=== PATIENT | female | born 1980 | race Caucasian/White ===

== ENCOUNTER 2016-06-07 08:51 | Emergency (ER) | payer OTHER ==
[2016-06-07] MEDS ORDERED: IPRATROPIUM-ALBUTEROL 3 ML NEB INHALATION STA (09:01)
--- NOTE | 2016-06-07 09:03 | ED ---
URI HPI - General Chief Complaint: Upper Respiratory Infection Stated Complaint: congestion Time Seen by Provider: 06/07/16 08:57 Source: patient, RN notes reviewed Mode of arrival: ambulatory Limitations: no limitations - History of Present Illness Initial Comments: 36-year-old female presents emergency Department chief complaint cough congestion 3 days. Patient states that she has severe body aches. Patient states she is a smoker and has noticed some wheezing. Patient states that she' s been coughing so much her ribs her. Patient denies any nausea vomiting. Patient states that she gets primarily clear to slightly yellow tinged nasal drainage. Denies sore throat, ear pain. Patient states that she's had some on- and-off headaches. She's been taking [id number] NyQuil, Tylenol cold and flu. Patient states that she's had no relief. - Related Data Previous Rx's Medication Instructions Recorded Ibuprofen [Motrin] 800 mg PO Q6HR PRN #30 tab 06/07/16 Oseltamivir [Tamiflu] 75 mg PO Q12HR #10 cap 06/07/16 methylPREDNISolone [Medrol Dose 4 mg PO DIRECTED #1 pack 06/07/16 Pack] Allergies Allergy/AdvReac Type Severity Reaction Status Date / Time Penicillins Allergy Unknown Verified 06/07/16 08:57 Review of Systems ROS Statement: Those systems with pertinent positive or pertinent negative responses have been documented in the HPI. ROS Other: All systems not noted in ROS Statement are negative. Past Medical History Past Medical History: No Reported History History of Any Multi-Drug Resistant Organisms: None Reported Past Surgical History: Tonsillectomy Past Psychological History: No Psychological Hx Reported Smoking Status: Current every day smoker Past Alcohol Use History: Occasional Past Drug Use History: Marijuana General Exam Limitations: no limitations General appearance: alert, in no apparent distress Head exam: Present: atraumatic, normocephalic, normal inspection Eye exam: Present: normal appearance, PERRL, EOMI. Absent: scleral icterus, conjunctival injection, periorbital swelling ENT exam: Present: normal exam, normal oropharynx, mucous membranes moist, TM's normal bilaterally, normal external ear exam Neck exam: Present: normal inspection, full ROM. Absent: tenderness, meningismus, lymphadenopathy Respiratory exam: Present: wheezes (Left long). Absent: respiratory distress, rales, rhonchi, stridor Cardiovascular Exam: Present: regular rate, normal rhythm, normal heart sounds. Absent: systolic murmur, diastolic murmur, rubs, gallop, clicks GI/Abdominal exam: Present: soft, normal bowel sounds. Absent: distended, tenderness, guarding, rebound, rigid Skin exam: Present: warm, dry, intact, normal color. Absent: rash Course Vital Signs 06/07/16 06/07/16 06/07/16 08:53 09:09 09:18 Temperature 98.3 F Pulse Rate 108 H 95 92 Respiratory 18 Rate Blood Pressure 150/102 O2 Sat by Pulse 95 Oximetry Medical Decision Making - Medical Decision Making 36-year-old female presents emergency Department with chief complaint of cough and congestion. Patient is influenza positive chest x-ray correlate for bronchitis. Patient does have some bronchospasms. Patient we given Tamiflu as her symptoms started Friday morning. Patient is approximate 40 hours her symptoms. Patient will also be given a steroid for her bronchospasms. Return parameters discussed. - Lab Data Lab Results 06/07/16 Range/Units 09:12 Influenza Type A RNA Detected H (Not Detectd) Influenza Type B (PCR) Not Detected (Not Detectd) Disposition Clinical Impression: Influenza A, Bronchospasm Disposition: HOME SELF-CARE Condition: Stable Instructions: Influenza (ED) Additional Instructions: Please return to the Emergency Department if symptoms worsen or any other concerns. Prescriptions: Ibuprofen [Motrin] 800 mg PO Q6HR PRN #30 tab PRN Reason: Pain Oseltamivir [Tamiflu] 75 mg PO Q12HR #10 cap methylPREDNISolone [Medrol Dose Pack] 4 mg PO DIRECTED #1 pack Time of Disposition: 09:46
--- NOTE | 2016-06-07 09:33 | XR ---
EXAMINATION TYPE: XR chest 2V DATE OF EXAM: 06/07/2016 9:10 AM COMPARISON: NONE HISTORY: Cough and pain TECHNIQUE: Frontal and lateral views of the chest are obtained. FINDINGS: There is no focal air space opacity, pleural effusion, or pneumothorax seen. The cardiac silhouette size is within normal limits. There are prominent lung volumes. There is bronchial wall t hickening. The osseous structures are intact. IMPRESSION: Correlate for reactive airways disease, bronchitis
[2016-06-07 09:50] VITALS: BP 159/91; PULSE 113; RESP 20
[2016-06-07 10:08] VITALS: TEMP 98.9
== END 2016-06-07 10:11 | disposition home or self-care (01) ==
LOC: EC 08:51
DX: J11.1 Influenza due to unidentified influenza virus with other respiratory manifestations (principal); J98.01 Acute bronchospasm; F17.200 Nicotine dependence, unspecified, uncomplicated; Z88.0 Allergy status to penicillin
CPT/HCPCS: 71020; 87502; 94640; 99284

== ENCOUNTER 2020-01-21 07:41 | Emergency (ER) | payer OTHER ==
[2020-01-21 07:45] VITALS: RESP 16
[2020-01-21] MEDS ORDERED: METOCLOPRAMIDE 5 MG/ML 2 ML VIAL IVP STA (07:53)
[2020-01-21] MEDS ORDERED: SODIUM CHLORIDE 0.9% 500 ML 500 ML IV STA (07:53)
[2020-01-21 08:51] LABS: Basophils # (A) 0.1 k/uL (0-0.2); Basophils % (A) 1 %; Eosinophils # (A) 0.4 k/uL (0-0.7); Eosinophils % (A) 3 %; HCT 43.5 % (34.0-46.0); HGB 14.3 gm/dL (11.4-16.0); Lymphocytes # (A) 1.6 k/uL (1.0-4.8); Lymphocytes % (A) 12 %; MCH 28.6 pg (25.0-35.0); MCHC 32.8 g/dL (31.0-37.0); MCV 87.2 fL (80.0-100.0); Mean Platelet Volume 8.3; Monocytes # (A) 0.5 k/uL (0-1.0); Monocytes % (A) 4 %; Neutrophils # (A) 10.4 k/uL (1.3-7.7); Neutrophils % (A) 79 %; Platelet Count 227 k/uL (150-450); RBC 4.99 m/uL (3.80-5.40); RDW 14.2 % (11.5-15.5); WBC 13.1 k/uL (3.8-10.6)
--- NOTE | 2020-01-21 08:55 | ED ---
General Adult HPI - General Chief complaint: Abdominal Pain Stated complaint: abd pain Time Seen by Provider: 01/21/20 07:52 Source: patient, RN notes reviewed, old records reviewed Mode of arrival: ambulatory Limitations: no limitations - History of Present Illness Initial comments: 39-year-old female patient presents to ED for evaluation. Patient reports that for the last 3 days or so he has been having some generalized abdominal discomfort. Also having some dysuria and frequency. Nausea without emesis. Denies any any fevers. Denies any other acute complaints. Systemic: Pt denies fatigue, fever/chills, rash. Pt denies weakness, night sweats, weight loss. Neuro: Pt denies headache, visual disturbances, syncope or pre-syncope. HEENT: Pt denies ocular discharge or irritation, otalgia, rhinorrhea, pharyngitis or notable lymphadenopathy. Cardiopulmonary: Pt denies chest pain, SOB, heart palpitations, dyspnea on exertion. Abdominal/GI: Pt denies abdominal pain, n/v/d. : Pt denies dysuria, burning w/ urination, frequency/urgency. Denies new onset urinary or bowel incontinence. MSK: Pt denies myalgia, loss of strength or function in extremities. Neuro: Pt denies new onset weakness, paresthesias. - Related Data Home Medications Medication Instructions Recorded Confirmed Acetaminophen Tab [Tylenol] 650 mg PO Q4H PRN 01/21/20 01/21/20 Albuterol Inhaler [Ventolin Hfa 2 puff INHALATION RT-Q4H PRN 01/21/20 01/21/20 Inhaler] Atorvastatin [Lipitor] 10 mg PO HS 01/21/20 01/21/20 Ibuprofen [Motrin Ib] 400 mg PO Q8H PRN 01/21/20 01/21/20 metFORMIN HCL [Glucophage] 500 mg PO DIRECTED 01/21/20 01/21/20 metFORMIN HCL [metFORMIN HCL ER] 750 mg PO DAILY 01/21/20 01/21/20 Previous Rx's Medication Instructions Recorded Ciprofloxacin HCl [Cipro] 500 mg PO Q12HR #20 day 01/21/20 metroNIDAZOLE [Flagyl] 500 mg PO TID 10 Days #30 tab 01/21/20 Allergies Allergy/AdvReac Type Severity Reaction Status Date / Time Penicillins Allergy Unknown Verified 01/21/20 09:11 Review of Systems ROS Statement: Those systems with pertinent positive or pertinent negative responses have been documented in the HPI. ROS Other: All systems not noted in ROS Statement are negative. Past Medical History Past Medical History: No Reported History History of Any Multi-Drug Resistant Organisms: None Reported Past Surgical History: Tonsillectomy Past Psychological History: No Psychological Hx Reported Smoking Status: Current every day smoker Past Alcohol Use History: Occasional Past Drug Use History: Marijuana General Exam - General Exam Comments Initial Comments: Constitutional: NAD, AOX3, Pt has pleasant affect. HEENT: NC/AT, trachea midline, neck supple, no lymphadenopathy. Posterior pharynx non erythematous, without exudates. External ears appear normal, without discharge. Mucous membranes moist. Eyes PERRLA, EOM intact. There is no scleral icterus. No pallor noted. Cardiopulmonary: RRR, no murmurs, rubs or gallops, no JVD noted. Lungs CTAB in anterior and posterior ruelas. No peripheral edema. Abdominal exam: Abdomen soft and non-distended. Abdomen nontender to palpation periumbilical left lower quadrant region. Bowel sounds active in LLQ. No hepatosplenomegaly. No ecchymosis Neuro: CN II-XII grossly intact. No nuchal rigidity. No raccon eyes, no yang sign, no hemotympanum. No cervical spinal tenderness. MSK: No posterior calf tenderness bilaterally, homans sign negative bilaterally. Posterior tibialis and radial pulse +2 bilaterally. Sensation intact in upper and lower extremities. Full active ROM in upper and lower extremities, 5/5 stregnth. Limitations: no limitations Course Vital Signs 01/21/20 07:42 Temperature 98.1 F Pulse Rate 78 Respiratory 16 Rate Blood Pressure 156/89 O2 Sat by Pulse 98 Oximetry Medical Decision Making - Medical Decision Making 39-year-old female patient presents to ED for evaluation of denies abdominal discomfort states 3 days. Reports nausea without emesis. Patient also stable, afebrile. Physical exam displayed some mild periumbilical left lower quadrant tenderness. Laboratory investigations reveal leukocytosis. UA contaminated with squamous cells while culture. CT without contrast displayed findings consistent with acute sigmoid diverticulitis. Due to penicillin ALLERGY patient be placed on ciprofloxacin and Flagyl. Will be discharged with outpatient GI follow up. Case discussed with Dr. Mcclendon. - Lab Data Result diagrams: 01/21/20 08:28 01/21/20 08:28 Lab Results 01/21/20 01/21/20 01/21/20 Range/Units 08:28 08:28 08:28 WBC 13.1 H (3.8-10.6) k/uL RBC 4.99 (3.80-5.40) m/uL Hgb 14.3 (11.4-16.0) gm/dL Hct 43.5 (34.0-46.0) % MCV 87.2 (80.0-100.0) fL MCH 28.6 (25.0-35.0) pg MCHC 32.8 (31.0-37.0) g/dL RDW 14.2 (11.5-15.5) % Plt Count 227 (150-450) k/uL Neutrophils % 79 % Lymphocytes % 12 % Monocytes % 4 % Eosinophils % 3 % Basophils % 1 % Neutrophils # 10.4 H (1.3-7.7) k/uL Lymphocytes # 1.6 (1.0-4.8) k/uL Monocytes # 0.5 (0-1.0) k/uL Eosinophils # 0.4 (0-0.7) k/uL Basophils # 0.1 (0-0.2) k/uL Sodium 138 (137-145) mmol/L Potassium 4.1 (3.5-5.1) mmol/L Chloride 108 H (98-107) mmol/L Carbon Dioxide 22 (22-30) mmol/L Anion Gap 8 mmol/L BUN 9 (7-17) mg/dL Creatinine 0.66 (0.52-1.04) mg/dL Est GFR (CKD-EPI)AfAm >90 (>60 ml/min/1.73 sqM) Est GFR (CKD-EPI)NonAf >90 (>60 ml/min/1.73 sqM) Glucose 180 H (74-99) mg/dL Plasma Lactic Acid Albert (0.7-2.0) mmol/L Calcium 9.5 (8.4-10.2) mg/dL Total Bilirubin 0.9 (0.2-1.3) mg/dL AST 19 (14-36) U/L ALT 24 (4-34) U/L Alkaline Phosphatase 84 (38-126) U/L Total Protein 7.0 (6.3-8.2) g/dL Albumin 4.1 (3.5-5.0) g/dL Lipase 137 (23-300) U/L Urine Color Yellow Urine Appearance Turbid H (Clear) Urine pH 5.5 (5.0-8.0) Ur Specific [place] 1.031 (1.001-1.035) Urine Protein 1+ H (Negative) Urine Glucose (UA) Negative (Negative) Urine Ketones 1+ H (Negative) Urine Blood Negative (Negative) Urine Nitrite Negative (Negative) Urine Bilirubin Negative (Negative) Urine Urobilinogen <2.0 (<2.0) mg/dL Ur Leukocyte Esterase Moderate H (Negative) Urine RBC 12 H (0-5) /hpf Urine WBC 4 (0-5) /hpf Ur Squamous Epith Cells 44 H (0-4) /hpf Urine Bacteria Occasional H (None) /hpf Urine Mucus Many H (None) /hpf Urine HCG, Qual (Not Detectd) 01/21/20 01/21/20 Range/Units 08:28 08:28 WBC (3.8-10.6) k/uL RBC (3.80-5.40) m/uL Hgb (11.4-16.0) gm/dL Hct (34.0-46.0) % MCV (80.0-100.0) fL MCH (25.0-35.0) pg MCHC (31.0-37.0) g/dL RDW (11.5-15.5) % Plt Count (150-450) k/uL Neutrophils % % Lymphocytes % % Monocytes % % Eosinophils % % Basophils % % Neutrophils # (1.3-7.7) k/uL Lymphocytes # (1.0-4.8) k/uL Monocytes # (0-1.0) k/uL Eosinophils # (0-0.7) k/uL Basophils # (0-0.2) k/uL Sodium (137-145) mmol/L Potassium (3.5-5.1) mmol/L Chloride (98-107) mmol/L Carbon Dioxide (22-30) mmol/L Anion Gap mmol/L BUN (7-17) mg/dL Creatinine (0.52-1.04) mg/dL Est GFR (CKD-EPI)AfAm (>60 ml/min/1.73 sqM) Est GFR (CKD-EPI)NonAf (>60 ml/min/1.73 sqM) Glucose (74-99) mg/dL Plasma Lactic Acid Alebr[place] 0.8 (0.7-2.0) mmol/L Calcium (8.4-10.2) mg/dL Total Bilirubin (0.2-1.3) mg/dL AST (14-36) U/L ALT (4-34) U/L Alkaline Phosphatase (38-126) U/L Total Protein (6.3-8.2) g/dL Albumin (3.5-5.0) g/dL Lipase (23-300) U/L Urine Color Urine Appearance (Clear) Urine pH (5.0-8.0) Ur Specific [place] (1.001-1.035) Urine Protein (Negative) Urine Glucose (UA) (Negative) Urine Ketones (Negative) Urine Blood (Negative) Urine Nitrite (Negative) Urine Bilirubin (Negative) Urine Urobilinogen (<2.0) mg/dL Ur Leukocyte Esterase (Negative) Urine RBC (0-5) /hpf Urine WBC (0-5) /hpf Ur Squamous Epith Cells (0-4) /hpf Urine Bacteria (None) /hpf Urine Mucus (None) /hpf Urine HCG, Qual Not Detected (Not Detectd) Disposition Clinical Impression: Acute diverticulitis Disposition: HOME SELF-CARE Condition: Stable Instructions (If sedation given, give patient instructions): Diverticulitis (ED ) Additional Instructions: Taken back as directed. Follow up with primary care provider tomorrow. Follow up with GI consult tomorrow. Return to ED with any worsening symptoms. Prescriptions: Ciprofloxacin HCl [Cipro] 500 mg PO Q12HR #20 day metroNIDAZOLE [Flagyl] 500 mg PO TID 10 Days #30 tab Is patient prescribed a controlled substance at d/c from ED?: No Referrals: Melany Lambert MD [Primary Care Provider] - 1-2 days Jose Guadalupe Henry MD [STAFF PHYSICIAN] - 1-2 days
[2020-01-21 09:02] LABS: ALT 24 U/L (4-34); AST 19 U/L (14-36); African American GFR (CKD) >90 (>60 ml/min/1.73 sqM); Albumin 4.1 g/dL (3.5-5.0); Alkaline Phosphatase 84 U/L (38-126); Anion Gap 8 mmol/L; Blood Urea Nitrogen 9 mg/dL (7-17); Calcium 9.5 mg/dL (8.4-10.2); Carbon Dioxide 22 mmol/L (22-30); Chloride 108 mmol/L (98-107); Glucose 180 mg/dL (74-99); Non-African American GFR(CKD) >90 (>60 ml/min/1.73 sqM); Potassium 4.1 mmol/L (3.5-5.1); Sodium 138 mmol/L (137-145); Total Bilirubin 0.9 mg/dL (0.2-1.3)
[2020-01-21 09:12] LABS: Appearance,Urine Turbid (Clear); Bacteria,Urine Occasional /hpf; Bilirubin,Urine Negative (Negative); Blood,Urine Negative (Negative); Color,Urine Yellow; Glucose,Urine (UA) Negative (Negative); Ketones,Urine 1+ (Negative); Leukocyte Esterase,Urine Moderate (Negative); Mucus,Urine Many /hpf; Nitrite,Urine Negative (Negative); PH, Urine 5.5 (5.0-8.0); Protein,Urine 1+ (Negative); RBC,Urine 12 /hpf (0-5); Specific Gravity,Urine 1.031 (1.001-1.035); Squamous Epithelial Cell,Urine 44 /hpf (0-4); Urobilinogen,Urine <2.0 mg/dL (<2.0); WBC,Urine 4 /hpf (0-5)
[2020-01-21] MEDS ORDERED: SODIUM CHLORIDE 0.9% 500 ML 500 ML IV ONE (09:17)
[2020-01-21] MEDS ORDERED: MORPHINE SULFATE 4 MG/ML SYRINGE IVP STA (09:32)
[2020-01-21] MEDS ORDERED: ONDANSETRON 4 MG/2 ML VIAL IVP STA (09:32)
--- NOTE | 2020-01-21 10:12 | CT ---
EXAMINATION TYPE: CT abdomen pelvis w con DATE OF EXAM: 01/21/2020 COMPARISON: None HISTORY: Pelvic pain with nausea. CT DLP: 2133.1 mGycm Automated exposure control for dose reduction was used. CONTRAST: CT scan of the abdomen pelvis is performed with IV Contrast, patient injected with 100 mL of Isovue 3 00. FINDINGS- LUNG BASES- No significant abnormality is appreciated. LIVER/GB-liver is low attenuation correlate for hepatic steatosis. Changes of cholelithiasis incident ally noted. PANCREAS- No gross abnormality is seen. SPLEEN- No gross abnormality is seen. ADRENALS- No gross abnormality is seen. KIDNEYS/BLADDER-tiny hypodensity within the left kidney too small to characterize. No evidence of nep hrolithiasis or hydronephrosis. BOWEL-there is inflammatory change within the pelvis sigmoid colon with marked wall thickening and di verticula in a pattern most typical of acute diverticulitis. Follow to resolution to exclude underlyi ng neoplasm.. LYMPH NODES- No greater than 1cm abdominal or pelvic lymph nodes areappreciated. OSSEOUS STRUCTURES-hypertrophic and degenerative changes of the spine. Congenital limbus deformity of L3 incidentally noted.. OTHER- aorta of normal caliber. No free air. Thickening of the left paracolic gutter and tiny amount of fluid incidentally noted. Tiny fat-containing umbilical hernia noted IMPRESSION- 1. Findings are most consistent with acute uncomplicated diverticulitis. Follow-up to resolution to e xclude other etiologies as discussed above. 2. Cholelithiasis.
[2020-01-21] MEDS ORDERED: metroNIDAZOLE 500 MG TAB PO STA (10:15)
[2020-01-21] MEDS ORDERED: CIPROFLOXACIN HCL 500 MG TAB PO STA (10:15)
[2020-01-21 11:08] VITALS: BP 127/89; PULSE 79; TEMP 98.3
== END 2020-01-21 11:08 | disposition home or self-care (01) ==
LOC: EC 07:41
DX: K57.92 Diverticulitis of intestine, part unspecified, without perforation or abscess without bleeding (principal); F17.200 Nicotine dependence, unspecified, uncomplicated; Z79.84 Long term (current) use of oral hypoglycemic drugs; Z79.899 Other long term (current) drug therapy; Z88.0 Allergy status to penicillin
CPT/HCPCS: 36415; 93005; 80053; 83605; 83690; 85025; 81001; 81025; 87086; 74177; 99285; 96374; 96375 ×2; J2270; J2765; J2405; Q9967

== ENCOUNTER 2020-05-24 09:12 | Day surgery (SDC) | payer OTHER ==
[2020-05-23 10:09] VITALS: BMI 37.1
[2020-05-24] MEDS ORDERED: LIDOCAINE 1% (10MG/ML) FOR IV START INTRADERMA ONE (10:21)
[2020-05-24] MEDS ORDERED: LACTATED RINGERS 1,000 ML IV ONE (10:21)
[2020-05-24 10:22] VITALS: TEMP 97.6
[2020-05-24 10:25] LABS: Glucose,Whole Blood 127 mg/dL (75-99)
[2020-05-24] MEDS ORDERED: PROPOFOL 10 MG/ML 20 ML VIAL IV ONE (11:04)
--- NOTE | 2020-05-24 11:17 | P.PCN ---
Date of Procedure: 05/24/20 Procedure(s) Performed: BRIEF HISTORY: Patient is a 40-year-old pleasant female scheduled for an elective colonoscopy as a part of evaluation of recent episode of acute sigmoid diverticulitis in January 2020. PROCEDURE PERFORMED: Colonoscopy with biopsy. PREOPERATIVE DIAGNOSIS: Recent episode of acute sigmoid diverticulitis. IV sedation per Anesthesia. PROCEDURE: After informed consent was obtained, the patient, was brought into the endoscopy unit. IV sedation was administered by Anesthesia under continuous monitoring. Digital rectal examination was normal. Initially the Olympus CF-160 flexible video colonoscope was then inserted in the rectum, gradually advanced into the cecum without any difficulty. Careful examination was performed as the scope was gradually being withdrawn. Ileocecal valve and the appendiceal orifice were visualized and appeared normal. Prep was excellent. Mucosa of the cecum, ascending colon, transverse colon, descending colon, sigmoid colon, and rectum appeared normal. In the sigmoid: There was a 3 mm probably by cold biopsy. Scattered sigmoid diverticulosis seen. Retroflexion was performed in the rectum and no lesions were seen. The patient tolerated the procedure well. IMPRESSION: 3 mm sigmoid: Polyp status post removal by cold biopsy Scattered sigmoid diverticulosis. RECOMMENDATIONS: Findings of this examination were discussed with the patient as well as a family. He'll follow with the biopsy results and if the biopsy shows an adenoma she can have a repeat colonoscopy in 5 years. She was advised to be be a high-fiber diet and take fiber supplements a regular basis.
[2020-05-24 11:24] VITALS: RESP 16
[2020-05-24 11:41] VITALS: BP 138/87; PULSE 76
== END 2020-05-24 12:08 | disposition home or self-care (01) ==
LOC: ORWHC2ENDO 09:12
PROVIDERS: ATTEND Internal Medicine Gastroenterology
DX: K57.30 Diverticulosis of large intestine without perforation or abscess without bleeding (principal); K63.5 Polyp of colon; E11.9 Type 2 diabetes mellitus without complications; F17.210 Nicotine dependence, cigarettes, uncomplicated; Z88.0 Allergy status to penicillin; Z79.84 Long term (current) use of oral hypoglycemic drugs; Z79.899 Other long term (current) drug therapy; Z90.89 Acquired absence of other organs
CPT/HCPCS: 81025; 88305; 45380; J2704

== ENCOUNTER 2020-10-16 12:53 | Emergency (ER) | payer OTHER ==
[2020-10-16 13:27] VITALS: BP 153/88; PULSE 87; RESP 18; TEMP 98.7
[2020-10-16] MEDS ORDERED: LIDOCAINE 1% INJ 10MG/ML (20 ML MDV) SQ ONE (14:19)
[2020-10-16] MEDS ORDERED: ACET/COD 300 MG/30 MG STARTER PACK 6 TAB BTL PO STA (14:57)
--- NOTE | 2020-10-16 14:57 | ED ---
Skin/Abscess/FB HPI - General Chief complaint: Skin/Abscess/Foreign Body Stated complaint: Female Time Seen by Provider: 10/16/20 14:02 Source: patient Mode of arrival: ambulatory Limitations: no limitations - History of Present Illness Initial comments: Patient is a 40-year-old female presenting to the emergency department with complaints of a possible cyst or abscess near the end of her vaginal opening. Patient states about 2 weeks ago she noticed some discomfort with intercourse. She states she noticed some swelling on the left side of her vaginal wall. She states she did see her project crew worker, Dr. Castelan last week who recommended warm compresses to the area and to follow-up in one week. She states she has an appointment with him in 4 days however the pain is unbearable, the swelling is increasing. She denies any fevers or chills, no nausea or vomiting. She states she's never had anything like this before. She is no further complaints. - Related Data Home Medications Medication Instructions Recorded Confirmed Acetaminophen Tab [Tylenol] 650 mg PO Q4H PRN 01/21/20 05/24/20 Albuterol Inhaler [Ventolin Hfa 2 puff INHALATION RT-Q4H PRN 01/21/20 05/24/20 Inhaler] Ibuprofen [Motrin Ib] 400 mg PO Q8H PRN 01/21/20 05/24/20 metFORMIN HCL [metFORMIN HCL ER] 750 mg PO 199901/21/20 05/24/20 Ascorbic Acid [Vitamin C] 1,000 mg PO 199905/23/20 05/24/20 Cholecalciferol [Vitamin D3 (25 1,000 unit PO 199905/23/20 05/24/20 Mcg = 1000 Iu)] Pravastatin Sodium [Pravachol] 20 mg PO 199905/23/20 05/24/20 Previous Rx's Medication Instructions Recorded Cephalexin [Keflex] 500 mg PO Q6HR 5 Days #20 cap 10/16/20 Allergies Allergy/AdvReac Type Severity Reaction Status Date / Time Penicillins Allergy Unknown Verified 10/16/20 13:26 Childhood Review of Systems ROS Statement: Those systems with pertinent positive or pertinent negative responses have been documented in the HPI. ROS Other: All systems not noted in ROS Statement are negative. Past Medical History Past Medical History: No Reported History, Asthma, Diabetes Mellitus, Hyperlipidemia Additional Past Medical History / Comment(s): diverticulitis, hx palpitations, seasonal allergies, umbilical hernia, gallstones, History of Any Multi-Drug Resistant Organisms: None Reported Past Surgical History: Tonsillectomy Past Anesthesia/Blood Transfusion Reactions: No Reported Reaction Additional Past Anesthesia/Blood Transfusion Reaction / Comment(s): never had a transfusion Past Psychological History: Anxiety Smoking Status: Current every day smoker Past Alcohol Use History: None Reported Past Drug Use History: Marijuana - Past Family History Mother Family Medical History: No Reported History General Exam - General Exam Comments Initial Comments: GENERAL: Patient is well-developed and well-nourished. Patient is nontoxic and in no acute distress. HEAD: Atraumatic, normocephalic. EYES: Pupils equal round and reactive to light, extraocular movements intact, sclera anicteric, conjunctiva are normal. Eyelids were unremarkable. ENT: Nares patent, oropharynx clear without exudates. Moist mucous membranes. NECK: Normal range of motion, supple without lymphadenopathy or JVD. LUNGS: Unlabored respirations. Breath sounds clear to auscultation bilaterally and equal. No wheezes rales or rhonchi. HEART: Regular rate and rhythm without murmurs, rubs or gallops. ABDOMEN: Soft, nontender, normoactive bowel sounds. No guarding, no rebound. No masses appreciated. MUSCULOSKELETAL: Normal extremities with adequate strength and normal range of motion, no pitting or edema. No clubbing or cyanosis. NEUROLOGICAL: Patient is alert and oriented x 3. Motor and sensory are also intact. Cranial nerves II through XII grossly intact. Symmetrical smile. Normal speech, normal gait. PSYCH: Normal mood, normal affect. SKIN: Warm, Dry, normal turgor, no rashes or lesions noted. Limitations: no limitations External exam: Present: swelling, other (bartholin cyst, ~2cm on th left vaginal wall/opening) Course Vital Signs 10/16/20 13:24 Temperature 98.7 F Pulse Rate 87 Respiratory 18 Rate Blood Pressure 153/88 O2 Sat by Pulse 98 Oximetry Procedures - [place] Protocol (Time Out) Procedure Performed:: I & D Performing Provider: Melita Aguiar Nurse: Wendi Mcneil Timeout Date: 10/16/20 Timeout Time: 14:35 Patient Identification (2 identifiers required): Chart, Verbal, Arm Band Patient/Legal Expanded Duty Dental Assistant has Confirmed: Identity, Site, Procedure, Consent Site: left vaginal wall Site Marked: Yes Site Verified With Patient/Guardian: Yes Final Confirmation: Procedure, Site, Confirmed w/Provider - Incision & Drainage Consent Obtained: verbal consent, written consent Indication: Abscess/bartholin cyst Site: vulva/vagina Size (cm): 2 Anesthetic Used: lidocaine 1% Amount (mLs): 3 I&D Cleaning Method: Alcohol Wipe Scalpel Used: #11 I&D Drainage Obtained: Pus, Blood Culture Obtained?: No Patient Tolerated Procedure: well Medical Decision Making - Medical Decision Making Patient is a 40-year-old female presenting for a left-sided bartholin cyst for the past 2 weeks. She saw her UTILITIES MANAGER doctor Annelise last week recommend warm compresses. She has been doing this, pain and swelling been increasing. No fevers, right vitals are stable. I&D consent was obtained. I did do an I&D to the area, large amount of purulent pus was drained. Patient does report improvement in her symptoms. Patient was still follow-up with her UTILITIES MANAGER in 4 days. I will start her on a small dose of antibiotics. She'll continue with warm compresses. She is in agreement with this plan of care and she is stable for discharge. Case discussed Dr. Phelps. Disposition Clinical Impression: Cyst of left Bartholin's gland Disposition: HOME SELF-CARE Condition: Stable Instructions (If sedation given, give patient instructions): Abscess Incision and Drainage (DC) Additional Instructions: Please return to the Emergency Department if symptoms worsen or any other concerns. Continue with warm compresses as discussed. Keep area clean and dry. Continue Tylenol and/or ibuprofen for discomfort. Take antibiotics as prescribed. Follow-up with your UTILITIES MANAGER as discussed. Prescriptions: Cephalexin [Keflex] 500 mg PO Q6HR 5 Days #20 cap Is patient prescribed a controlled substance at d/c from ED?: No Referrals: Melany Lambert MD [Primary Care Provider] - 1-2 days Time of Disposition: 14:57
== END 2020-10-16 15:11 | disposition home or self-care (01) ==
LOC: EC 12:53
DX: N75.0 Cyst of Bartholin's gland (principal); J45.909 Unspecified asthma, uncomplicated; E11.9 Type 2 diabetes mellitus without complications; E78.5 Hyperlipidemia, unspecified; F17.200 Nicotine dependence, unspecified, uncomplicated; F12.90 Cannabis use, unspecified, uncomplicated; Z79.84 Long term (current) use of oral hypoglycemic drugs; Z79.51 Long term (current) use of inhaled steroids
CPT/HCPCS: 99282; 56420; J2001

== ENCOUNTER 2021-10-12 01:53 | Inpatient (IN) | payer OTHER ==
[2021-10-12 03:03] LABS: Creatinine,Urine Random 33.4 mg/dL; Creatinine,Urine Random 34.4 mg/dL; Protein/Creatinine Ratio,Urine 0.669
[2021-10-12 03:19] LABS: Appearance,Urine Clear (Clear); Bilirubin,Urine Negative (Negative); Blood,Urine Negative (Negative); Color,Urine Light Yellow; Glucose,Urine (UA) Negative (Negative); Ketones,Urine Negative (Negative); Leukocyte Esterase,Urine Large (Negative); Mucus,Urine Rare /hpf; Nitrite,Urine Negative (Negative); Protein,Urine Negative (Negative); RBC,Urine 2 /hpf (0-5); Specific Gravity,Urine 1.007 (1.001-1.035); Squamous Epithelial Cell,Urine 4 /hpf (0-4); Urobilinogen,Urine <2.0 mg/dL (<2.0); WBC,Urine 5 /hpf (0-5)
[2021-10-12 03:21] LABS: Amphetamine Screen,Urine Not Detected (NotDetected); Barbiturate Screen,Urine Not Detected (NotDetected); Benzodiazepines Screen,Urine Not Detected (NotDetected); Cocaine Screen,Urine Not Detected (NotDetected); Methadone Screen, Urine Not Detected (NotDetected); Opiate Screen,Urine Not Detected (NotDetected); Oxycodone Screen, Urine Not Detected (NotDetected); Phencyclidine Screen,Urine Not Detected (NotDetected); Tricyclic Antidepressant,Urine Not Detected (NotDetected); Urn Cannabinoid Scrn Not Detected (NotDetected)
[2021-10-12 03:38] LABS: ALT 24 U/L (4-34); AST 26 U/L (14-36); African American GFR (CKD) >90 (>60 ml/min/1.73 sqM); Basophils # (A) 0.1 k/uL (0-0.2); Basophils % (A) 0 %; Blood Urea Nitrogen 12 mg/dL (7-17); Eosinophils # (A) 0.2 k/uL (0-0.7); Eosinophils % (A) 2 %; Glucose 96 mg/dL (74-99); HCT 36.7 % (34.0-46.0); HGB 11.7 gm/dL (11.4-16.0); LDH 352 U/L (313-618); Lymphocytes # (A) 2.7 k/uL (1.0-4.8); Lymphocytes % (A) 22 %; MCHC 31.9 g/dL (31.0-37.0); Mean Platelet Volume 10.4; Monocytes # (A) 0.5 k/uL (0-1.0); Monocytes % (A) 4 %; Neutrophils # (A) 8.7 k/uL (1.3-7.7); Neutrophils % (A) 70 %; Non-African American GFR(CKD) >90 (>60 ml/min/1.73 sqM); Platelet Count 202 k/uL (150-450); RBC 4.17 m/uL (3.80-5.40); RDW 14.8 % (11.5-15.5); Uric Acid 5.3 mg/dL (3.7-7.4); WBC 12.4 k/uL (3.8-10.6)
[2021-10-12 03:48] LABS: INR 0.8 (<1.2); Partial Thromboplastin Time 22.1 sec (22.0-30.0); Prothrombin Time 9.3 sec (9.0-12.0)
--- NOTE | 2021-10-12 03:57 | US ---
EXAMINATION TYPE: US OB >= 14 wk fetus DATE OF EXAM: 10/12/2021 COMPARISON: None CLINICAL HISTORY: size and positionSize and position. A1; patient presents with hypertension. Pat ient is type II diabetic with gestational diabetes/hypertension. Patient states baby is measuring lar ge TECHNIQUE: Transabdominal (TA) GESTATIONAL AGE / DATING Physician Established: (36 weeks/1 days) EDC: 11/08/21 Dates by First Scan: No previous this is first scan here Dates by Current Scan: (38 weeks/6 days) EDC: 10/20/21 SURVEY IUP: Single PLACENTA: Posterior PREVIA: No Previa VINICIO: 17.3 cm Normal CERVICAL LENGTH (transabdominal: norm > 3.0cm): 3.2 cm BIOMETRY PRESENTATION: Breech LIE: Oblique BPD: 9.41 cm 38 weeks / 3 days HC: 33.78 cm 38 weeks / 6 days AC: 36.88 cm 40 weeks / 6 days FL: 7.23 cm 37 weeks / 1 days ESTIMATED WEIGHT IN GRAMS: 3802 grams ESTIMATED WEIGHT IN LBS/OZ: 8 lbs. 6 oz. WEIGHT PERCENTAGE BASED ON ESTABLISHED DATES: >98% HC/AC: 0.92 Abnormal FL/AC: 20% Normal HEART RATE: 136 bpm RHYTHM: Normal IMPRESSION: There is evidence for macrosomia.
--- NOTE | 2021-10-12 06:39 | P.HPOB ---
History of Present Illness H&P Date: 10/12/21 Chief Complaint: Hypertension This patient is a 41-year-old 2 para 0 female estimated gestational age 36 and one sevenths weeks based on patient's history. Patient has had no care here and has been per Dr. Castelan and he has not provided us with those records. Patient presents to labor and delivery with complaints of not feeling well. She apparently is a type II diabetic and has been treated by Dr. Castelan on metformin. Patient also in the last 2 weeks as developed significant blood pressure elevations apparently he has been treating with Procardia and increasing the dose most recently. She states she did have a 24-hour urine. Patient's blood pressures apparently have been going up and plan was for primary section next week at [facility] due to breech presentation. Once again there are no records provided to me. Patient's blood pressure here is significantly elevated and preeclampsia labs show an elevated protein to creatinine ratio. Ultrasound confirms persistent breech 8 lbs. 6 oz. Review of Systems Genitourinary: Reports Menstruation: Reports amenorrhea Past Medical History Past Medical History: Asthma, Diabetes Mellitus, Hyperlipidemia Additional Past Medical History / Comment(s): diverticulitis, hx palpitations, seasonal allergies, umbilical hernia, gallstones, History of Any Multi-Drug Resistant Organisms: None Reported Past Surgical History: Tonsillectomy Past Anesthesia/Blood Transfusion Reactions: No Reported Reaction Additional Past Anesthesia/Blood Transfusion Reaction / Comment(s): never had a transfusion Past Psychological History: Anxiety Smoking Status: Never smoker Past Alcohol Use History: None Reported Additional Past Alcohol Use History / Comment(s): smokes 3 cigarettes daily, has smoked on and off for 20 yrs Past Drug Use History: Marijuana Additional Drug Use History / Comment(s): in the past - Past Family History Mother Family Medical History: Coronary Artery Disease (CAD), Hypertension, Myocardial Infarction (SD) Medications and Allergies Home Medications Medication Instructions Recorded Confirmed Type Albuterol Inhaler [Ventolin Hfa 2 puff INHALATION RT-Q4H PRN 01/21/20 10/12/21 History Inhaler] metFORMIN HCL [metFORMIN HCL ER] 500 mg PO BID 01/21/20 10/12/21 History Cholecalciferol [Vitamin D3 (25 1,000 unit PO DAILY 05/23/20 10/12/21 History Mcg = 1000 Iu)] Aspirin [Adult Low Dose Aspirin EC] 81 mg PO DAILY 10/12/21 10/12/21 History Ferrous Sulfate [Iron] 325 mg PO DAILY 10/12/21 10/12/21 History NIFEdipine [NIFEdipine ER] 30 mg PO DAILY 10/12/21 10/12/21 History Pnv,Calcium 72/Iron/Folic Acid 1 tablet PO DAILY 10/12/21 10/12/21 History [ Plus Tablet] metFORMIN HCL [Glucophage] 500 mg PO BID 10/12/21 10/12/21 History Allergies Allergy/AdvReac Type Severity Reaction Status Date / Time Penicillins Allergy Unknown Verified 10/12/21 01:55 Childhood Exam Vital Signs Temp Pulse Resp BP Pulse Ox 10/12/21 01:54 97.8 F 80 16 173/102 98 Intake and Output 10/11/21 10/11/21 10/12/21 14:59 22:59 06:59 Other: # Voids 2 Weight 116.12 kg - OBG Physical Exam Uterus: enlarged Results Result Diagrams: 10/12/21 02:40 10/12/21 02:40 Abnormal Lab Results - Last 24 Hours (Table) 10/12/21 10/12/21 10/12/21 Range/Units 02:10 02:10 02:40 WBC 12.4 H (3.8-10.6) k/uL Neutrophils # 8.7 H (1.3-7.7) k/uL Fibrinogen (200-500) mg/dL Ur Leukocyte Esterase Large H (Negative) Urine Mucus Rare H (None) /hpf U Random Total Protein 24 H (<12) mg/dL 10/12/21 Range/Units 02:40 WBC (3.8-10.6) k/uL Neutrophils # (1.3-7.7) k/uL Fibrinogen 769 H (200-500) mg/dL Ur Leukocyte Esterase (Negative) Urine Mucus (None) /hpf U Random Total Protein (<12) mg/dL Assessment and Plan Assessment: This is a 41-year-old 2 para 0 female 36 and one sevenths weeks gestation with no care here but with another provider that records are unavailable 4. Patient has what appears to be pre-gestational diabetes. Patient now has severe preeclampsia and persistent breech presentation. I discussed plan with the patient and her we plan to proceed with delivery now by section. She does understand the surgery and risks and risks of infection, bleeding, possible injury bowel, bladder, vessels, and/or other organs. All the patient's questions are answered written consent is obtained. Patient does understand that based on the size of this baby and her diabetes and appears she may not had the best control therefore there is a good chance baby may need to go to special care nursery for observation. (1) 36 to 37 weeks gestation of Current Visit: Yes Status: Acute Code(s): [id number] - SNOMED Code(s): 119375113 (2) Gestational diabetes Current Visit: Yes Status: Acute Code(s): O24.419 - GESTATIONAL DIABETES MELLITUS IN , UNSP CONTROL SNOMED Code(s): 68659613 (3) Elderly primigravida Current Visit: Yes Status: Acute Code(s): O09.519 - SUPERVISION OF ELDERLY PRIMIGRAVIDA, UNSPECIFIED TRIMESTER SNOMED Code(s): 16304931 (4) Breech presentation Current Visit: Yes Status: Acute Code(s): O32.1XX0 - MATERNAL CARE FOR BREECH PRESENTATION, UNSP SNOMED Code(s): 2582142 (5) Preeclampsia, severe Current Visit: Yes Status: Acute Code(s): O14.10 - SEVERE PRE-ECLAMPSIA, UNSPECIFIED TRIMESTER SNOMED Code(s): 78853730
[2021-10-12 06:45] LABS: Glucose,Whole Blood 93 mg/dL (75-99)
[2021-10-12] MEDS ORDERED: CITRIC ACID-SODIUM CITRATE 15 ML CUP PO ONE (06:49)
[2021-10-12] MEDS ORDERED: LACTATED RINGERS 1,000 ML IV ONE (06:49)
[2021-10-12] MEDS ORDERED: LACTATED RINGERS 1,000 ML IV SCH (07:00)
[2021-10-12] MEDS ORDERED: ceFAZolin 3 GM in SODIUM CHLORIDE 0.9% 100 ML IVPB ONE (07:00)
[2021-10-12 08:04] LABS: Glucose,Whole Blood 92 mg/dL (75-99)
[2021-10-12 09:03] LABS: Glucose,Whole Blood 85 mg/dL (75-99)
[2021-10-12 09:55] LABS: Hepatitis B Surface Antigen Nonreactive (Nonreactive)
[2021-10-12 10:23] LABS: Glucose,Whole Blood 82 mg/dL (75-99)
[2021-10-12 11:16] LABS: Glucose,Whole Blood 83 mg/dL (75-99)
[2021-10-12 11:20] LABS: HIV 2 AB Non-Reactive (Non-Reactive); HIV AB P24 Non-Reactive (Non-Reactive); HIV P24 AG Non-Reactive (Non-Reactive)
[2021-10-12 12:09] LABS: Glucose,Whole Blood 79 mg/dL (75-99)
[2021-10-12 13:02] LABS: Glucose,Whole Blood 76 mg/dL (75-99)
[2021-10-12] MEDS ORDERED: ONDANSETRON 4 MG/2 ML VIAL ONE (13:07)
[2021-10-12] MEDS ORDERED: MORPHINE SULFATE (PF) 0.3 MG/0.3 ML SYR ONE (13:07)
[2021-10-12] MEDS ORDERED: OXYTOCIN 30 UNITS/500 ML NS BAG IV ONE (13:07)
[2021-10-12] MEDS ORDERED: KETOROLAC 15 MG/ML 1 ML VIAL ONE (13:07)
[2021-10-12] MEDS ORDERED: NALBUPHINE 10 MG/ML (1 ML AMP) ONE (13:07)
[2021-10-12] MEDS ORDERED: LANOLIN CREAM 5 GM TUBE TOPICAL PRN (13:51)
[2021-10-12] MEDS ORDERED: NALOXONE 0.4 MG/ML 1 ML VIAL IV PRN (13:51)
[2021-10-12] MEDS ORDERED: diphenhydrAMINE 25 MG CAP PO PRN (13:51)
[2021-10-12] MEDS ORDERED: MAGNESIUM SULFATE-WATER PMX 4 GM in WATER FOR INJECTION 1 100ML.BAG IVPB ONE (13:51)
[2021-10-12] MEDS ORDERED: CALCIUM GLUCONATE 1 GM/10 ML VIAL IV PRN (13:51)
[2021-10-12] MEDS ORDERED: diphenhydrAMINE 50 MG/ML 1 ML VIAL IVP PRN (13:51)
[2021-10-12] MEDS ORDERED: ZOLPIDEM 5 MG TAB PO PRN (13:51)
[2021-10-12] MEDS ORDERED: SIMETHICONE 80 MG CHEWABLE PO PRN (13:51)
[2021-10-12] MEDS ORDERED: ONDANSETRON 4 MG/2 ML VIAL IVP PRN (13:51)
[2021-10-12] MEDS ORDERED: METOCLOPRAMIDE 5 MG/ML 2 ML VIAL IVP PRN (13:51)
[2021-10-12] MEDS: MAGNESIUM SULFATE-WATER PMX 20 GM in WATER FOR INJECTION 1 500ML.BAG IV SCH (14:34)
[2021-10-12 16:54] LABS: Glucose,Whole Blood 82 mg/dL (75-99)
[2021-10-12] MEDS: LABETALOL 200 MG TAB PO SCH ×2 (17:27→17:38)
[2021-10-12] MEDS: ACETAMINOPHEN TAB 500 MG TAB PO SCH (17:45)
--- NOTE | 2021-10-12 17:54 | P.OP ---
Date of Procedure: 10/12/21 Preoperative Diagnosis: #1: 36 and one sevenths week intrauterine . #2: Gestational diabetes. #3: Preeclampsia with severe features #4: Breech presentation #5: Polyhydramnios Postoperative Diagnosis: #1: Same. #2: Transverse lie. Procedure(s) Performed: Primary low transverse section Anesthesia: spinal Surgeon: Kapil Cavanaugh Music Education Director #1: Deepti Horne Estimated Blood Loss (ml): 600 Pathology: other (Placenta) Condition: stable Disposition: floor Indications for Procedure: Please see dictated H&P for intimate details of this patient's admission. Brief summary this is a 41-year-old 2 para 0 female 36 and one sevenths weeks gestation who presented to labor and delivery early this morning with complaints of elevated blood pressure and not feeling well. Patient's care has been per Dr. Castelan at [facility] initial records are unavailable to us. Patient has been treated for hypertension in her last 2 weeks with Procardia and been watched by him for gestational hypertension. She also states that she was diabetic prior to the and has been followed by an motion designer for control. Patient is scheduled for a at another hospital next week for breech presentation and hypertension. Patient's however now having significant blood pressure elevations with severe features consistent with severe preeclampsia. I recommended the patient proceed with delivery at this time. Ultrasound confirms persistent breech. We therefore elected proceed with section at this time. Patient and I have discussed the surgery and risks and risks of infection, bleeding, possible injury bowel, bladder, vessels, and/or other organs. All the patient's questions are answered written consent is obtained. Operative Findings: This is a vigorous viable female Apgars 9 and 9 delivery time was 1322 hrs. Infant has spontaneous respiration and good cry and grossly appeared normal. Infant was in the transverse presentation converted to vertex at the time of delivery. Description of Procedure: This patient has a Mchugh catheter placed to straight drain. She is subsequently taken to the operating room really appropriate timeout is made. Spinal anesthetic is then placed without incident. With an adequate level of anesthesia she has abdominal prep and drape. Scalpels then taken and a Pfannenstiel skin incision is then made. A second scalpel is taken down the fascia the fascia scored with a knife. Fascial incision extended bilaterally using the Alva scissors. Fascia is then dissected off the rectus muscles. Rectus muscles are the peritoneum was identified and entered sharply. Peritoneal incision extended superior and inferior without difficulty. Bladder blade is then placed. Bladder peritoneum was taken sharply off the lower uterine segment. Scalpels and taken a low transverse uterine incision is then made. Using a hemostat I into the uterine cavity bluntly and there is loss of clear fluid. There is a very copious amount of fluid consistent with polyhydramnios. The infant is in this time was found to be in the transverse presentation with the head on the maternal right side. I guided the head and converted to a vertex presentation with fundal pressure this is delivered. With this done the mouth and nares are bulb suctioned. With more fundal pressure we have delivery the rest of this infant's body. This is a vigorous viable female Apgars are 9 and 9 delivery time is 1322 hrs. has spontaneous respirations and good cry and grossly appears normal and no she had a nuchal cord 1 and a true knot. The placenta is then manually extracted intact. This is sent to pathology. The uterus is then externalized and the uterine incision demarcated with Palencia clamps. Uterus is cleared of all debris and then closed using 0 Vicryl running locked fashion 2 layers excellent hemostasis is noted. The latter peritoneum was then reapproximated using a 3-0 Vicryl. Excess fluid is removed from the abdomen and pelvis. The uterus, tubes, ovaries all appear normal for term gestation. With this done the uterus placed back into the abdomen. Parietal peritoneum was then closed in 0 Vicryl running fashion. Rectus muscles reapproximated 0 Vicryl interrupted fashion. Fascial incision is then closed using 0 PDS. Fascial incision is intact and hemostatic. Subcutaneous tissues and closed using a 3-0 Vicryl. Skin is and closed using velma. All counts are correct 3. There are no complications. Infant and mother are stable in delivery room.
--- NOTE | 2021-10-12 18:42 | P.MSEPDOC ---
Presenting Problems - Arrival Data Date of Arrival on Unit: 10/12/21 Time of Arrival on Unit: 06:00 Mode of Transport: Portable - Complaint OB-Reason for Admission/Chief Complaint: PIH Medical History - Information : 2 Para: 0 Term: 0 : 0 Abortions: Spontaneous or Elective: 1 Number of Living Children: 0 - Gestational Age Gestational Age by ZHANG (wks/days): 36 Weeks and 1 Days - History Complications: Preeclampsia Review of Systems - Review of Systems Constitutional: No problems Breast: No problems ENT: No problems Cardiovascular: No problems Respiratory: No problems Gastrointestinal: No problems Genitourinary: No problems Musculoskeletal: No problems Neurological: No problems Skin: No problems Comment: Type 2 diabetic Vital Signs - Temperature Temperature: 96.6 F Temperature Source: Temporal Artery Scan - Pulse Right Sitting Pulse Rate: 81 Pulse Assessment Method: Automatic Cuff - Respirations Respiratory Rate: 17 Oxygen Delivery Method: Room Air O2 Sat by Pulse Oximetry: 99 - Blood Pressure Right Arm Sitting Blood Pressure: 138/81 Blood Pressure Mean: 100 Blood Pressure Source: Automatic Cuff Medical Screen Scoring - Assessment - Baby A Heart Rate - NICHD Category: Category I (Normal) Physician Notification - Physician Notified Physician Notified Date: 10/12/21 Physician Notified Time: 02:23 Physician: Afshan New Order Received: Yes - Notification Comment Comment: will assess patient when he comes in, plan to c section later this am or afternoon Maternal Triage Index - Maternal Triage Index Presenting for scheduled procedure w/no complaint: No - Stat/Priority 1 Stat Priority 1: No - Urgent/Priority 2 Urgent Priority 2: No - Prompt/Priority 3 Prompt Priority 3: Yes Criteria Met for Priority 3: Dr Cavanaugh called at 0223 Disposition - Disposition OB Disposition: Observe I agree with the RN Medical Screening Exam: Yes Case reviewed; plan agreed upon as documented in EMR&OBIX.: Yes Diagnosis: SEVERE PRE-ECLAMPSIA, THIRD TRIMESTER (Please see dictated H&P and delivery summary on this patient's admission.)
[2021-10-12] MEDS: KETOROLAC 15 MG/ML 1 ML VIAL IVP SCH (20:07)
[2021-10-12 20:38] VITALS: RESP 16
[2021-10-12 22:57] LABS: Glucose,Whole Blood 106 mg/dL (75-99)
[2021-10-13] MEDS: MAGNESIUM SULFATE-WATER PMX 20 GM in WATER FOR INJECTION 1 500ML.BAG IV SCH (00:04)
[2021-10-13] MEDS: KETOROLAC 15 MG/ML 1 ML VIAL IVP SCH ×4 (02:00→22:09)
[2021-10-13] MEDS: IBUPROFEN 600 MG TAB PO SCH (04:48)
--- NOTE | 2021-10-13 07:06 | P.PNOBGPC ---
Subjective - Subjective Patient reports: Reports appetite normal, Reports voiding normally, Reports pain well controlled, Reports ambulating normally : doing well Objective - Vital Signs Latest vital signs: Vital Signs Temp Pulse Resp BP Pulse Ox 10/13/21 06:00 76 16 120/65 99 10/13/21 05:00 98 16 122/73 98 10/13/21 04:00 76 16 131/73 98 10/13/21 03:00 65 16 128/72 98 10/13/21 02:00 72 16 116/70 99 10/13/21 01:00 67 16 114/68 99 10/13/21 00:00 72 16 119/72 98 10/12/21 22:00 96.6 F L 68 16 110/69 97 10/12/21 21:00 68 16 133/77 99 10/12/21 20:00 98.0 F 71 16 129/75 98 10/12/21 19:00 78 17 118/73 98 10/12/21 18:41 96.6 F L 81 17 138/81 99 10/12/21 18:04 81 17 138/81 99 10/12/21 17:00 92 16 145/100 99 10/12/21 16:00 67 17 149/84 97 10/12/21 15:20 96.6 F L 70 16 145/87 98 10/12/21 14:47 96.7 F L 59 L 16 136/86 96 10/12/21 14:35 57 L 16 132/82 96 10/12/21 14:20 60 16 129/83 97 10/12/21 14:05 61 16 140/99 99 10/12/21 13:51 97 10/12/21 13:50 61 16 112/66 98 10/12/21 13:00 78 17 136/79 10/12/21 12:00 88 17 137/83 10/12/21 11:00 81 17 126/80 10/12/21 10:00 74 17 137/77 10/12/21 08:58 87 17 134/76 10/12/21 07:51 89 16 118/69 Intake and Output 10/12/21 10/13/21 10/13/21 22:59 06:59 14:59 Intake Total 1120 475 Output Total 977 2500 Balance 143 -2024 Intake: Intake, IV Titration 520 475 Amount Lactated Ringers 1,000 ml 320 @ 125 mls/hr IV .Q8H HERMAN Rx#:[id number] Magnesium Sulfate-Water 200 475 Pmx 20 gm In Water For Injection 1 500ml.bag @ 2 GM/HR 50 mls/hr IV .Q10H HERMAN Rx#:[id number] Oral 600 Output: Urine 825 2500 Output, Quantitative 152 Blood Loss Other: Voiding Method Indwelling Catheter Indwelling Catheter - Exam Lungs: bilateral: normal Chest: Normal S1, Normal S2 Extremities: Present: normal Abdomen: Present: normal appearance, soft. Absent: distention, tenderness Incision: Present: normal, dry, intact Uterus: Present: normal, firm - Labs Labs: Abnormal Lab Results - Last 24 Hours (Table) 10/12/21 10/12/21 10/12/21 Range/Units 02:40 14:39 22:55 POC Glucose (mg/dL) 106 H (75-99) mg/dL Magnesium 3.0 H (1.6-2.3) mg/dL Rubella IgG Antibody 64.10 H (0.00-10.00) IU/mL Assessment and Plan Assessment: Postoperative day #1. Patient is resting without new complaints. Blood pressures markedly improved on labetalol. Incision is intact and dry and she is having normal lochia. Plan today is to discontinue her magnesium sulfate, discontinue her catheter, advance her diet, check a CBC, and continue routine postoperative care. (1) 36 to 37 weeks gestation of Current Visit: Yes Status: Acute Code(s): [id number] - SNOMED Code(s): 799428819 (2) Gestational diabetes Current Visit: Yes Status: Acute Code(s): O24.419 - GESTATIONAL DIABETES MELLITUS IN , UNSP CONTROL SNOMED Code(s): 38130273 (3) Elderly primigravida Current Visit: Yes Status: Acute Code(s): O09.519 - SUPERVISION OF ELDERLY PRIMIGRAVIDA, UNSPECIFIED TRIMESTER SNOMED Code(s): 02296231 (4) Breech presentation Current Visit: Yes Status: Acute Code(s): O32.1XX0 - MATERNAL CARE FOR BREECH PRESENTATION, UNSP SNOMED Code(s): 4537083 (5) Preeclampsia, severe Current Visit: Yes Status: Acute Code(s): O14.10 - SEVERE PRE-ECLAMPSIA, UNSPECIFIED TRIMESTER SNOMED Code(s): 42025211
[2021-10-13 07:45] LABS: Basophils % (A) 0 %; Eosinophils # (A) 0.1 k/uL (0-0.7); Eosinophils % (A) 1 %; HCT 29.6 % (34.0-46.0); Lymphocytes # (A) 0.9 k/uL (1.0-4.8); Lymphocytes % (A) 11 %; MCH 28.8 pg (25.0-35.0); MCHC 32.7 g/dL (31.0-37.0); MCV 87.8 fL (80.0-100.0); Mean Platelet Volume 10.5; Monocytes # (A) 0.3 k/uL (0-1.0); Monocytes % (A) 3 %; Neutrophils # (A) 6.8 k/uL (1.3-7.7); Neutrophils % (A) 80 %; Platelet Count 164 k/uL (150-450); RBC 3.37 m/uL (3.80-5.40); RDW 15.5 % (11.5-15.5); WBC 8.5 k/uL (3.8-10.6)
[2021-10-13 07:46] LABS: Glucose,Whole Blood 116 mg/dL (75-99)
[2021-10-13 07:47] LABS: HGB 9.7 gm/dL (11.4-16.0)
--- NOTE | 2021-10-13 08:33 | P.PN ---
Progress Note - Text Progress Note Date: 10/13/21 Patient doing well. Denies weakness or paresthesia. Denies headache. Pain controlled Back spinal site c/d A/P POD#1 s/p w/ spinal duramorph - doing well
[2021-10-13] MEDS: SENNOSIDES-DOCUSATE SODIUM 1 EACH TAB PO SCH ×2 (09:21→20:02)
[2021-10-13] MEDS: LABETALOL 200 MG TAB PO SCH ×2 (09:22→21:06)
[2021-10-13] MEDS: ACETAMINOPHEN TAB 500 MG TAB PO SCH (13:37)
[2021-10-13 17:28] LABS: Glucose,Whole Blood 121 mg/dL (75-99)
[2021-10-13] MEDS ORDERED: KETOROLAC 15 MG/ML 1 ML VIAL IVP SCH (19:00)
[2021-10-14] MEDS: ACETAMINOPHEN TAB 500 MG TAB PO SCH ×2 (02:17→07:45)
[2021-10-14] MEDS: IBUPROFEN 600 MG TAB PO SCH ×2 (02:17→04:13)
--- NOTE | 2021-10-14 07:15 | P.PNOBGPC ---
Subjective - Subjective Patient reports: Reports appetite normal, Reports voiding normally, Reports pain well controlled, Reports ambulating normally : doing well Objective - Vital Signs Latest vital signs: Vital Signs Temp Pulse Resp BP Pulse Ox 10/14/21 04:00 98.8 F 78 16 119/81 10/13/21 20:00 98.0 F 74 16 135/73 10/13/21 15:50 98.4 F 78 16 133/76 99 10/13/21 12:00 97.9 F 68 16 120/64 10/13/21 08:00 97.4 F L 88 16 128/65 99 - Exam Lungs: bilateral: normal Chest: Normal S1, Normal S2 Extremities: Present: normal Abdomen: Present: normal appearance, soft. Absent: distention, tenderness Incision: Present: normal, dry, intact Uterus: Present: normal, firm - Labs Labs: Abnormal Lab Results - Last 24 Hours (Table) 10/13/21 10/13/21 10/13/21 Range/Units 07:24 07:24 07:44 RBC 3.37 L (3.80-5.40) m/uL Hgb 9.7 L D (11.4-16.0) gm/dL Hct 29.6 L (34.0-46.0) % Lymphocytes # 0.9 L (1.0-4.8) k/uL POC Glucose (mg/dL) 116 H (75-99) mg/dL Magnesium 5.3 H* (1.6-2.3) mg/dL 10/13/21 Range/Units 17:26 RBC (3.80-5.40) m/uL Hgb (11.4-16.0) gm/dL Hct (34.0-46.0) % Lymphocytes # (1.0-4.8) k/uL POC Glucose (mg/dL) 121 H (75-99) mg/dL Magnesium (1.6-2.3) mg/dL Assessment and Plan Assessment: Postoperative day #2. Patient is resting without complaints and she is considering going home later today. Vital signs are stable. Blood pressures well controlled on labetalol. Incision is intact and dry. Patient is tolerating regular diet, urinating, ambulating without difficulty. My impression is that this is a normal postoperative course. Plan is to discharge home later today if she wants otherwise tomorrow. (1) 36 to 37 weeks gestation of Current Visit: Yes Status: Acute Code(s): [id number] - SNOMED Code(s): 954042115 (2) Gestational diabetes Current Visit: Yes Status: Acute Code(s): O24.419 - GESTATIONAL DIABETES MELLITUS IN , UNSP CONTROL SNOMED Code(s): 63209492 (3) Elderly primigravida Current Visit: Yes Status: Acute Code(s): O09.519 - SUPERVISION OF ELDERLY PRIMIGRAVIDA, UNSPECIFIED TRIMESTER SNOMED Code(s): 86042901 (4) Breech presentation Current Visit: Yes Status: Acute Code(s): O32.1XX0 - MATERNAL CARE FOR BREECH PRESENTATION, UNSP SNOMED Code(s): 3729445 (5) Preeclampsia, severe Current Visit: Yes Status: Acute Code(s): O14.10 - SEVERE PRE-ECLAMPSIA, UNSPECIFIED TRIMESTER SNOMED Code(s): 77471088
--- NOTE | 2021-10-14 07:24 | P.DS ---
Providers Date of admission: 10/12/21 05:43 Expected date of discharge: 10/14/21 Attending physician: Kapil Cavanaugh Primary care physician: Stated None - Discharge Diagnosis(es) (1) 36 to 37 weeks gestation of Current Visit: Yes Status: Acute (2) Gestational diabetes Current Visit: Yes Status: Acute (3) Elderly primigravida Current Visit: Yes Status: Acute (4) Breech presentation Current Visit: Yes Status: Acute (5) Preeclampsia, severe Current Visit: Yes Status: Acute Hospital Course: Please see dictated H&P for intimate details of this patient's admission. Brief summary this is a 41-year-old 2 para 0 female estimated gestational age 36 and one sevenths weeks who is admitted to labor and delivery with complaints of high blood pressure. Patient had care elsewhere is found to have preeclampsia with severe features and malpresentation. Patient's subsequent undergoes a primary low transverse section for viable female . Please see dictated operative note. Postoperative patient does well is placed on labetalol with good control of her blood pressures. Postoperative #2 she is felt to be stable for discharge home follow up with her primary collections professional for a postop check and blood pressure check Procedures: Primary low transverse section Patient Condition at Discharge: Good Plan - Discharge Summary New Discharge Prescriptions: New oxyCODONE HCL [OxyIR] 5 mg PO Q4HR PRN #18 tab PRN Reason: Pain Scale 4 - 6 Labetalol [Trandate] 200 mg PO BID@0730,1930 #60 tab Ibuprofen [Motrin] 600 mg PO Q6H #30 tab No Action metFORMIN HCL [metFORMIN HCL ER] 500 mg PO BID Albuterol Inhaler [Ventolin Hfa Inhaler] 2 puff INHALATION RT-Q4H PRN PRN Reason: Shortness Of Breath Cholecalciferol [Vitamin D3 (25 Mcg = 1000 Iu)] 1,000 unit PO DAILY metFORMIN HCL [Glucophage] 500 mg PO BID Aspirin [Adult Low Dose Aspirin EC] 81 mg PO DAILY NIFEdipine [NIFEdipine ER] 30 mg PO DAILY Pnv,Calcium 72/Iron/Folic Acid [ Plus Tablet] 1 tablet PO DAILY Ferrous Sulfate [Iron] 325 mg PO DAILY Discharge Medication List Albuterol Inhaler [Ventolin Hfa Inhaler] 2 puff INHALATION RT-Q4H PRN 09/11/20 [History] metFORMIN HCL [metFORMIN HCL ER] 500 mg PO BID 01/21/20 [History] Cholecalciferol [Vitamin D3 (25 Mcg = 1000 Iu)] 1,000 unit PO DAILY 05/23/20 [History] Aspirin [Adult Low Dose Aspirin EC] 81 mg PO DAILY 10/12/21 [History] Ferrous Sulfate [Iron] 325 mg PO DAILY 10/12/21 [History] NIFEdipine [NIFEdipine ER] 30 mg PO DAILY 10/12/21 [History] Pnv,Calcium 72/Iron/Folic Acid [ Plus Tablet] 1 tablet PO DAILY 10/12/21 [History] metFORMIN HCL [Glucophage] 500 mg PO BID 10/12/21 [History] Ibuprofen [Motrin] 600 mg PO Q6H #30 tab 10/14/21 [Rx] Labetalol [Trandate] 200 mg PO BID@0730,1930 #60 tab 10/14/21 [Rx] oxyCODONE HCL [OxyIR] 5 mg PO Q4HR PRN #18 tab 10/14/21 [Rx] Follow up Appointment(s)/Referral(s): Wilfredo Castelan DO [REFERRING] - 1 Week Patient Instructions/Handouts: (DC), Preeclampsia and Eclampsia After Delivery (GEN) Activity/Diet/Wound Care/Special Instructions: No heavy lifting or strenuous activity for 6 weeks. No intercourse or anything per vagina for 6 weeks. Please call if any fever, chills, excessive vaginal bleeding, and/or abdominal pain. Please follow up with Dr. Castelan in 1 week for an incision check and blood pressure check. Discharge Disposition: HOME SELF-CARE
[2021-10-14] MEDS: SENNOSIDES-DOCUSATE SODIUM 1 EACH TAB PO SCH (07:44)
[2021-10-14] MEDS: LABETALOL 200 MG TAB PO SCH (07:45)
[2021-10-14 09:22] VITALS: BP 132/84; PULSE 73; TEMP 98.1
[2021-10-15 14:21] LABS: C. trachomatis,PCR Negative (Neg,Equiv); Chlamydia trachomatis Source Urine; N. gonorrhoeae,PCR Negative (Neg,Equiv); Neisseria Source Urine
== END 2021-10-14 12:30 | disposition home or self-care (01) | DRG 788 ==
LOC: FBPOP 01:53 → 4FBP 05:43
PROVIDERS: ADMIT Obstetrics & Gynecology; ATTEND Obstetrics & Gynecology
PROC: 10D00Z1 Extraction of Products of Conception, Low, Open Approach (ICD-10-PCS; principal; 2021-10-12 12:00)
DX: O14.14 Severe pre-eclampsia complicating childbirth (principal); O24.419 Gestational diabetes mellitus in pregnancy, unspecified control; O32.1XX0 Maternal care for breech presentation, not applicable or unspecified; O32.2XX0 Maternal care for transverse and oblique lie, not applicable or unspecified; O99.284 Endocrine, nutritional and metabolic diseases complicating childbirth; J45.909 Unspecified asthma, uncomplicated; F41.9 Anxiety disorder, unspecified; O99.52 Diseases of the respiratory system complicating childbirth; Z37.0 Single live birth; Z3A.37 37 weeks gestation of pregnancy; E78.5 Hyperlipidemia, unspecified; Z79.82 Long term (current) use of aspirin; Z79.84 Long term (current) use of oral hypoglycemic drugs; Z79.899 Other long term (current) drug therapy; Z82.49 Family history of ischemic heart disease and other diseases of the circulatory system; Z87.891 Personal history of nicotine dependence
CPT/HCPCS: 59025; 76805; 80306; 81001; 82565; 82570; 82947; 83615; 83735; 84156; 84450; 84460; 84520; 84550; 85025; 85384; 85610; 85730; 86762; 86780; 86850; 86900; 86901; 87340; 87390; 87491; 87591; 88307; 99215

== ENCOUNTER 2021-10-15 15:44 | Emergency (ER) | payer OTHER ==
[2021-10-15 15:51] VITALS: TEMP 98
[2021-10-15] MEDS ORDERED: SODIUM CHLORIDE 0.9% 1,000 ML IV STA (16:02)
[2021-10-15 16:33] LABS: Basophils # (A) 0.1 k/uL (0-0.2); Basophils % (A) 1 %; Eosinophils # (A) 0.4 k/uL (0-0.7); Eosinophils % (A) 5 %; HCT 31.2 % (34.0-46.0); Lymphocytes # (A) 1.7 k/uL (1.0-4.8); Lymphocytes % (A) 21 %; MCH 28.6 pg (25.0-35.0); MCHC 32.2 g/dL (31.0-37.0); MCV 88.8 fL (80.0-100.0); Mean Platelet Volume 9.1; Monocytes # (A) 0.3 k/uL (0-1.0); Monocytes % (A) 3 %; Neutrophils # (A) 5.5 k/uL (1.3-7.7); Neutrophils % (A) 69 %; Platelet Count 206 k/uL (150-450); RBC 3.51 m/uL (3.80-5.40)
[2021-10-15 16:40] LABS: INR 0.8 (<1.2); Prothrombin Time 9.4 sec (9.0-12.0)
[2021-10-15 16:42] LABS: ALT 23 U/L (4-34); AST 28 U/L (14-36); African American GFR (CKD) >90 (>60 ml/min/1.73 sqM); Albumin 3.1 g/dL (3.5-5.0); Alkaline Phosphatase 87 U/L (38-126); Anion Gap 5 mmol/L; Blood Urea Nitrogen 11 mg/dL (7-17); Calcium 8.8 mg/dL (8.4-10.2); Carbon Dioxide 21 mmol/L (22-30); Chloride 111 mmol/L (98-107); Glucose 93 mg/dL (74-99); LDH 438 U/L (313-618); Non-African American GFR(CKD) >90 (>60 ml/min/1.73 sqM); Potassium 4.2 mmol/L (3.5-5.1); Sodium 137 mmol/L (137-145); Total Bilirubin <0.1 mg/dL (0.2-1.3); Total Protein 5.9 g/dL (6.3-8.2)
[2021-10-15] MEDS ORDERED: LABETALOL SYRINGE 5 MG/ML IVP STA (16:47)
--- NOTE | 2021-10-15 16:47 | ED ---
General Adult HPI - General Chief complaint: Recheck/Abnormal Lab/Rx Stated complaint: Hypertension/Delivered 10/12/Edema Time Seen by Provider: 10/15/21 16:02 Source: patient Mode of arrival: wheelchair Limitations: no limitations - History of Present Illness Initial comments: Dictation was produced using [employer] dictation software. please excuse any grammatical, word or spelling errors. Chief Complaint: 41-year-old female presents emergency department for evaluation of preeclampsia History of Present Illness: 41-year-old female she typically follows with RIB BENDER Dr. Castelan at [facility]. Patient last week had episode of preeclampsia. She ended up being brought to our ER and had a stat performed by Dr. Cavanaugh for preeclampsia. Patient states she delivered 3 days ago. After the she was treated for preeclampsia. She was started on labetalol. Patient was discharged yesterday and discharged with by mouth labetalol. She states at the time of discharge her symptoms have been much improved. Today she started to have occipital headache and return of bilateral lower extremity swelling. Patient denies any numbness tingling or paresthesias. Patient denies any visual changes. States that her headache is mild and rated as a 3 out of 10 on the severity scale. The ROS documented in this emergency department record has been reviewed and confirmed by me. Those systems with pertinent positive or negative responses have been documented in the HPI. All other systems are other negative and/or n oncontributory. PHYSICAL EXAM: General Impression: Alert and oriented x3, not in acute distress HEENT: Normocephalic atraumatic, extra-ocular movements intact, pupils equal and reactive to light bilaterally, mucous membranes moist. Cardiovascular: Heart regular rate and rhythm Chest: Able to complete full sentences, no retractions, no tachypnea Abdomen: abdomen soft, non-tender, non-distended, no organomegaly Musculoskeletal: Pulses present and equal in all extremities, no peripheral edema Motor: no focal deficits noted Neurological: CN II-XII grossly intact, no focal motor or sensory deficits noted, no hyperreflexia to the lower extremities Skin: Intact with no visualized rashes Psych: Normal affect and mood ED course: 41-year-old female presents emergency Department with concerns of preeclampsia. As upon arrival shows blood pressure 148/100. Repeat blood pressure is 164/101. Laboratory evaluation is unremarkable. CBC, coag panel, Bolick panel is unremarkable. Urinalysis is negative. No evidence of thrombus cytopenia, elevated renal markers, elevated uric acid or elevated liver enzymes. Furthermore she does not have any proteinuria. Repeat blood pressure without any intervention was 147/86. Spoke with Dr. Mclean who is covering for Dr. Cavanaugh in detail about the patient. Dr. Mclean recommends patient be given her nighttime labetalol dose as soon as possible. She believes the patient is amenable for discharge with close outpatient follow-up with Dr. Castelan who is her primary RIB BENDER. Patient observed in emergency department for 3 hours and 30 minutes. Patient's blood pressures remained stable. Patient is agreeable disposition she is told to contact Dr. Castelan her primary RIB BENDER first in the morning tomorrow. - Related Data Home Medications Medication Instructions Recorded Confirmed Albuterol Inhaler [Ventolin Hfa 2 puff INHALATION RT-Q4H PRN 01/21/20 10/15/21 Inhaler] Aspirin [Adult Low Dose Aspirin EC] 81 mg PO DAILY 10/12/21 10/15/21 Ferrous Sulfate [Iron] 325 mg PO DAILY 10/12/21 10/15/21 Pnv,Calcium 72/Iron/Folic Acid 1 tablet PO DAILY 10/12/21 10/15/21 [ Plus Tablet] metFORMIN HCL [Glucophage] 500 mg PO BID 10/12/21 10/15/21 Acetaminophen Tab [Tylenol] 650 mg PO Q4H PRN 10/15/21 10/15/21 Cholecalciferol [Vitamin D3 (25 25 mcg PO DAILY 10/15/21 10/15/21 Mcg = 1000 Iu)] Previous Rx's Medication Instructions Recorded Ibuprofen [Motrin] 600 mg PO Q6H #30 tab 10/14/21 Labetalol [Trandate] 200 mg PO BID@0730,1930 #60 tab 10/14/21 oxyCODONE HCL [OxyIR] 5 mg PO Q4HR PRN #18 tab 10/14/21 Allergies Allergy/AdvReac Type Severity Reaction Status Date / Time Penicillins Allergy Unknown Verified 10/15/21 17:39 Childhood Review of Systems ROS Statement: Those systems with pertinent positive or pertinent negative responses have been documented in the HPI. ROS Other: All systems not noted in ROS Statement are negative. Past Medical History Past Medical History: Asthma, Diabetes Mellitus, Hyperlipidemia Additional Past Medical History / Comment(s): diverticulitis, hx palpitations, seasonal allergies, umbilical hernia, gallstones, History of Any Multi-Drug Resistant Organisms: None Reported Past Surgical History: Tonsillectomy Past Anesthesia/Blood Transfusion Reactions: No Reported Reaction Additional Past Anesthesia/Blood Transfusion Reaction / Comment(s): never had a transfusion Past Psychological History: Anxiety Smoking Status: Never smoker Past Alcohol Use History: None Reported Past Drug Use History: Marijuana - Past Family History Mother Family Medical History: Coronary Artery Disease (CAD), Hypertension, Myocardial Infarction (PR) General Exam Limitations: no limitations Course Vital Signs 10/15/21 10/15/21 10/15/21 15:46 16:30 17:10 Temperature 98.0 F Pulse Rate 74 74 67 Respiratory 18 18 Rate Blood Pressure 148/100 164/101 147/86 O2 Sat by Pulse 99 Oximetry 10/15/21 10/15/21 10/15/21 17:30 18:00 18:15 Temperature Pulse Rate 70 73 Respiratory 16 Rate Blood Pressure 136/94 150/92 157/91 O2 Sat by Pulse Oximetry 10/15/21 10/15/21 10/15/21 18:30 18:45 19:00 Temperature Pulse Rate 68 62 81 Respiratory Rate Blood Pressure 137/79 155/92 157/88 O2 Sat by Pulse Oximetry Medical Decision Making - Lab Data Result diagrams: 10/15/21 16:21 10/15/21 16:21 Lab Results 10/15/21 10/15/21 10/15/21 Range/Units 16:21 16:21 16:21 WBC 8.0 (3.8-10.6) k/uL RBC 3.51 L (3.80-5.40) m/uL Hgb 10.0 L (11.4-16.0) gm/dL Hct 31.2 L (34.0-46.0) % MCV 88.8 (80.0-100.0) fL MCH 28.6 (25.0-35.0) pg MCHC 32.2 (31.0-37.0) g/dL RDW 15.0 (11.5-15.5) % Plt Count 206 (150-450) k/uL MPV 9.1 Neutrophils % 69 % Lymphocytes % 21 % Monocytes % 3 % Eosinophils % 5 % Basophils % 1 % Neutrophils # 5.5 (1.3-7.7) k/uL Lymphocytes # 1.7 (1.0-4.8) k/uL Monocytes # 0.3 (0-1.0) k/uL Eosinophils # 0.4 (0-0.7) k/uL Basophils # 0.1 (0-0.2) k/uL PT 9.4 (9.0-12.0) sec INR 0.8 (<1.2) Sodium 137 (137-145) mmol/L Potassium 4.2 (3.5-5.1) mmol/L Chloride 111 H (98-107) mmol/L Carbon Dioxide 21 L (22-30) mmol/L Anion Gap 5 mmol/L BUN 11 (7-17) mg/dL Creatinine 0.72 (0.52-1.04) mg/dL Est GFR (CKD-EPI)AfAm >90 (>60 ml/min/1.73 sqM) Est GFR (CKD-EPI)NonAf >90 (>60 ml/min/1.73 sqM) Glucose 93 (74-99) mg/dL Uric Acid 5.0 (3.7-7.4) mg/dL Calcium 8.8 (8.4-10.2) mg/dL Total Bilirubin <0.1 L (0.2-1.3) mg/dL AST 28 (14-36) U/L ALT 23 (4-34) U/L Alkaline Phosphatase 87 (38-126) U/L Lactate Dehydrogenase 438 (313-618) U/L Total Protein 5.9 L (6.3-8.2) g/dL Albumin 3.1 L (3.5-5.0) g/dL Urine Color Urine Appearance (Clear) Urine pH (5.0-8.0) Ur Specific Wentworth (1.001-1.035) Urine Protein (Negative) Urine Glucose (UA) (Negative) Urine Ketones (Negative) Urine Blood (Negative) Urine Nitrite (Negative) Urine Bilirubin (Negative) Urine Urobilinogen (<2.0) mg/dL Ur Leukocyte Esterase (Negative) Urine RBC (0-5) /hpf Urine WBC (0-5) /hpf Ur Squamous Epith Cells (0-4) /hpf Urine Bacteria (None) /hpf Blood Type Blood Type Recheck Bld Type Recheck Status Antibody Screen Spec Expiration Date 10/15/21 10/15/21 Range/Units 16:21 16:39 WBC (3.8-10.6) k/uL RBC (3.80-5.40) m/uL Hgb (11.4-16.0) gm/dL Hct (34.0-46.0) % MCV (80.0-100.0) fL MCH (25.0-35.0) pg MCHC (31.0-37.0) g/dL RDW (11.5-15.5) % Plt Count (150-450) k/uL MPV Neutrophils % % Lymphocytes % % Monocytes % % Eosinophils % % Basophils % % Neutrophils # (1.3-7.7) k/uL Lymphocytes # (1.0-4.8) k/uL Monocytes # (0-1.0) k/uL Eosinophils # (0-0.7) k/uL Basophils # (0-0.2) k/uL PT (9.0-12.0) sec INR (<1.2) Sodium (137-145) mmol/L Potassium (3.5-5.1) mmol/L Chloride (98-107) mmol/L Carbon Dioxide (22-30) mmol/L Anion Gap mmol/L BUN (7-17) mg/dL Creatinine (0.52-1.04) mg/dL Est GFR (CKD-EPI)AfAm (>60 ml/min/1.73 sqM) Est GFR (CKD-EPI)NonAf (>60 ml/min/1.73 sqM) Glucose (74-99) mg/dL Uric Acid (3.7-7.4) mg/dL Calcium (8.4-10.2) mg/dL Total Bilirubin (0.2-1.3) mg/dL AST (14-36) U/L ALT (4-34) U/L Alkaline Phosphatase (38-126) U/L Lactate Dehydrogenase (313-618) U/L Total Protein (6.3-8.2) g/dL Albumin (3.5-5.0) g/dL Urine Color Colorless Urine Appearance Clear (Clear) Urine pH 6.5 (5.0-8.0) Ur Specific Wentworth 1.004 (1.001-1.035) Urine Protein Negative (Negative) Urine Glucose (UA) Negative (Negative) Urine Ketones Negative (Negative) Urine Blood Large H (Negative) Urine Nitrite Negative (Negative) Urine Bilirubin Negative (Negative) Urine Urobilinogen <2.0 (<2.0) mg/dL Ur Leukocyte Esterase Moderate H (Negative) Urine RBC 3 (0-5) /hpf Urine WBC 4 (0-5) /hpf Ur Squamous Epith Cells 3 (0-4) /hpf Urine Bacteria Rare H (None) /hpf Blood Type O Positive Blood Type Recheck O Pos Bld Type Recheck Status No Antibody Screen NEGATIVE Spec Expiration Date 10/18/2021 - 2320 Disposition Clinical Impression: hypertension Disposition: HOME SELF-CARE Condition: Good Instructions (If sedation given, give patient instructions): Hypertension During (ED) Additional Instructions: follow-up with your RIB BENDER tomorrow. Is patient prescribed a controlled substance at d/c from ED?: No Referrals: Melany Lambert MD [Primary Care Provider] - 1-2 days
[2021-10-15] MEDS ORDERED: MAGNESIUM SULFATE-WATER PMX 4 GM in WATER FOR INJECTION 1 100ML.BAG IVPB STA (16:51)
[2021-10-15 17:00] LABS: Appearance,Urine Clear (Clear); Bacteria,Urine Rare /hpf; Bilirubin,Urine Negative (Negative); Blood,Urine Large (Negative); Color,Urine Colorless; Glucose,Urine (UA) Negative (Negative); Ketones,Urine Negative (Negative); Leukocyte Esterase,Urine Moderate (Negative); Nitrite,Urine Negative (Negative); PH, Urine 6.5 (5.0-8.0); Protein,Urine Negative (Negative); RBC,Urine 3 /hpf (0-5); Specific Gravity,Urine 1.004 (1.001-1.035); Squamous Epithelial Cell,Urine 3 /hpf (0-4); Urobilinogen,Urine <2.0 mg/dL (<2.0); WBC,Urine 4 /hpf (0-5)
[2021-10-15] MEDS ORDERED: LABETALOL 200 MG TAB PO STA (17:25)
[2021-10-15 18:01] VITALS: RESP 16
[2021-10-15 19:03] VITALS: BP 157/88; PULSE 81
== END 2021-10-15 19:28 | disposition home or self-care (01) ==
LOC: EC 15:44
DX: O16.5 Unspecified maternal hypertension, complicating the puerperium (principal); J45.909 Unspecified asthma, uncomplicated; E11.9 Type 2 diabetes mellitus without complications; E78.5 Hyperlipidemia, unspecified; Z82.49 Family history of ischemic heart disease and other diseases of the circulatory system; Z88.0 Allergy status to penicillin
CPT/HCPCS: 36415; 86900; 86901; 82239; 80053; 83615; 84550; 85025; 85610; 86850; 81001; 96375; 99283; 96365; 96361; J3475

== ENCOUNTER 2023-03-09 20:42 | Emergency (ER) | payer OTHER ==
[2023-03-09 21:12] VITALS: RESP 18
[2023-03-09 21:32] LABS: Basophils % (A) 0 %; Eosinophils # (A) 0.4 k/uL (0-0.7); Eosinophils % (A) 4 %; HCT 39.4 % (34.0-46.0); HGB 13.2 gm/dL (11.4-16.0); Lymphocytes # (A) 3.3 k/uL (1.0-4.8); Lymphocytes % (A) 30 %; MCH 28.2 pg (25.0-35.0); MCHC 33.5 g/dL (31.0-37.0); MCV 84.1 fL (80.0-100.0); Mean Platelet Volume 8.6; Monocytes # (A) 0.4 k/uL (0-1.0); Monocytes % (A) 4 %; Neutrophils # (A) 6.6 k/uL (1.3-7.7); Neutrophils % (A) 60 %; Platelet Count 203 k/uL (150-450); RBC 4.68 m/uL (3.80-5.40); WBC 10.9 k/uL (3.8-10.6)
--- NOTE | 2023-03-09 21:36 | XR ---
EXAMINATION TYPE: XR chest 2V DATE OF EXAM: 03/09/2023 COMPARISON: 06/07/2016 INDICATION: Chest pain TECHNIQUE: Frontal and lateral views of the chest are obtained. FINDINGS: The heart size is normal. The pulmonary vasculature is normal. The lungs are clear. IMPRESSION: 1. No acute pulmonary process.
[2023-03-09 21:42] LABS: ALT 31 U/L (4-34); AST 26 U/L (14-36); African American GFR (CKD) >90 (>60 ml/min/1.73 sqM); Albumin 4.4 g/dL (3.5-5.0); Alkaline Phosphatase 65 U/L (38-126); Anion Gap 12 mmol/L; Blood Urea Nitrogen 15 mg/dL (7-17); Calcium 9.8 mg/dL (8.4-10.2); Carbon Dioxide 23 mmol/L (22-30); Chloride 102 mmol/L (98-107); Glucose 173 mg/dL (74-99); Non-African American GFR(CKD) >90 (>60 ml/min/1.73 sqM); Potassium 3.9 mmol/L (3.5-5.1); Sodium 137 mmol/L (137-145); Total Bilirubin 0.3 mg/dL (0.2-1.3); Total Protein 7.3 g/dL (6.3-8.2)
[2023-03-10] MEDS ORDERED: IBUPROFEN 600 MG TAB PO STA (01:21)
--- NOTE | 2023-03-10 01:22 | ED ---
Chest Pain HPI - General Chief Complaint: Chest Pain Stated Complaint: Chest pain Source: patient Mode of arrival: ambulatory - History of Present Illness Initial Comments: This patient is 42-year-old woman presenting have evaluation for pain along the sternal border bilaterally. She notes that she did recently start working out and that the symptoms are worse with movement particularly with bilateral arm abduction. She has not had any diaphoresis, dyspnea, nausea vomiting, lightheadedness or syncope. MD Complaint: chest pain -: days(s) Onset: during rest Pain Location: substernal Pain Radiation: none Severity: mild Quality: aching Consistency: constant Improves With: nothing Worsens With: movement Treatments Prior to Arrival: none - Related Data Home Medications Medication Instructions Recorded Confirmed Albuterol Inhaler [Ventolin Hfa 2 puff INHALATION RT-Q4H PRN 01/21/20 10/15/21 Inhaler] Aspirin [Adult Low Dose Aspirin EC] 81 mg PO DAILY 10/12/21 10/15/21 Ferrous Sulfate [Iron] 325 mg PO DAILY 10/12/21 10/15/21 Vit No.180/Iron/Folic 1 tablet PO DAILY 10/12/21 10/15/21 [ Plus Tablet] metFORMIN HCL [Glucophage] 500 mg PO BID 10/12/21 10/15/21 Acetaminophen Tab [Tylenol] 650 mg PO Q4H PRN 10/15/21 10/15/21 Cholecalciferol [Vitamin D3 (25 25 mcg PO DAILY 10/15/21 10/15/21 Mcg = 1000 Iu)] Previous Rx's Medication Instructions Recorded Ibuprofen [Motrin] 600 mg PO Q6H #30 tab 10/14/21 Labetalol [Trandate] 200 mg PO BID@0730,1930 #60 tab 10/14/21 oxyCODONE HCL [OxyIR] 5 mg PO Q4HR PRN #18 tab 10/14/21 Ibuprofen [Motrin] 600 mg PO Q8HR PRN #20 tab 03/10/23 Allergies Allergy/AdvReac Type Severity Reaction Status Date / Time Penicillins Allergy Unknown Verified 03/09/23 21:00 Childhood Review of Systems ROS Statement: Those systems with pertinent positive or pertinent negative responses have been documented in the HPI. ROS Other: All systems not noted in ROS Statement are negative. Constitutional: Denies: fever, chills Respiratory: Denies: cough, dyspnea Cardiovascular: Reports: chest pain. Denies: palpitations, edema Gastrointestinal: Denies: abdominal pain, nausea, vomiting Genitourinary: Denies: dysuria Musculoskeletal: Denies: back pain Skin: Denies: rash Neurological: Denies: headache, weakness EKG Findings - EKG Results: EKG: interpreted by NELIDAD, sinus rhythm (Rate 89 bpm), normal axis - Blocks, Henderson, Hypertrophy, ST Abn: QRS axis and voltage: low voltage (<0.5 MV total QRS and <1.0 MV in each precordial lead) Past Medical History Past Medical History: Asthma, Diabetes Mellitus, Hyperlipidemia, Hypertension Additional Past Medical History / Comment(s): diverticulitis, hx palpitations, seasonal allergies, umbilical hernia, gallstones, History of Any Multi-Drug Resistant Organisms: None Reported Past Surgical History: Section, Tonsillectomy Past Anesthesia/Blood Transfusion Reactions: No Reported Reaction Additional Past Anesthesia/Blood Transfusion Reaction / Comment(s): never had a transfusion Past Psychological History: Anxiety Smoking Status: Never smoker Past Alcohol Use History: None Reported Past Drug Use History: Marijuana - Past Family History Mother Family Medical History: Coronary Artery Disease (CAD), Hypertension, Myocardial Infarction (SD) General Exam General appearance: alert, in no apparent distress Head exam: Present: atraumatic, normocephalic Eye exam: Present: normal appearance. Absent: scleral icterus, conjunctival injection Neck exam: Present: normal inspection Respiratory exam: Present: normal lung sounds bilaterally, chest wall tendern ess. Absent: respiratory distress, wheezes, rales, rhonchi, stridor, accessory muscle use Cardiovascular Exam: Present: regular rate, normal rhythm, normal heart sounds. Absent: systolic murmur, diastolic murmur, rubs, gallop GI/Abdominal exam: Present: soft. Absent: distended, tenderness, guarding, rebound, rigid, mass Extremities exam: Present: normal inspection, normal capillary refill. Absent: pedal edema, calf tenderness Back exam: Present: normal inspection. Absent: CVA tenderness (R), CVA tenderness (L) Neurological exam: Present: alert Skin exam: Present: warm, dry, intact, normal color. Absent: rash Course Vital Signs 03/09/23 03/10/23 20:56 01:16 Temperature 98.6 F 98.2 F Pulse Rate 88 73 Respiratory 18 18 Rate Blood Pressure 143/94 135/91 O2 Sat by Pulse 99 97 Oximetry Chest Pain MDM - MDM The patient had chest x-ray which I interpreted as negative for acute infiltrate, cardiomegaly, pneumothorax Was pt. sent in by a medical professional or institution (, JARON, HOME DECORATOR, urgent care, hospital, or custodial...) When possible be specific @ -[No] Did you speak to anyone other than the patient for history (EMS, parent, family, police, friend...)? What history was obtained from this source @ -[No] Did you review nursing and triage notes (agree or disagree)? Why? @ -[I reviewed and agree with nursing and triage notes] Were old charts reviewed (outside hosp., previous admission, EMS record, old EKG, old radiological studies, urgent care reports/EKG's, custodial records)? Report findings @ -[No old charts were reviewed] Differential Diagnosis (chest pain, altered mental status, abdominal pain women, abdominal pain men, vaginal bleeding, weakness, fever, dyspnea, syncope, headache, dizziness, GI bleed, back pain, seizure, CVA, palpatations, mental health, musculoskeletal)? @ -[Differential Chest Pain: Stable Angina, Unstable Angina, STEMI, NSTEMI Aortic Dissection, Pneumothorax, Musculoskeletal, Esophageal Spasm GERD, Cholecystitis, Pancreatitis, Zoster, this is not meant to be an all-inclusive list. EKG interpreted by me (3pts min.). @ -[I interpreted As above] X-rays interpreted by me (1pt min.). @ -[I interpreted as above CT interpreted by me (1pt min.). @ -[None done] U/S interpreted by me (1pt. min.). @ -[None done] What testing was considered but not performed or refused? (CT, X-rays, U/S, labs)? Why? @ -[None] What meds were considered but not given or refused? Why? @ -[None] Did you discuss the management of the patient with other professionals (professionals i.e. JARON Stevens, HOME DECORATOR, lab, RT, psych nurse, social media intern, locomotive operator, teacher, ethics officer, housing case manager)? Give summary @ -[No] Was smoking cessation discussed for >3mins.? @ -[No] Was critical care preformed (if so, how long)? @ -[No] Were there social determinants of health that impacted care today? How? (Homelessness, low income, unemployed, alcoholism, drug addiction, transportation, low edu. Level, literacy, decrease access to med. care, senior care, rehab)? @ -[No] Was there de-escalation of care discussed even if they declined (Discuss DNR or withdrawal of care, Hospice)? DNR status @ -[No] What co-morbidities impacted this encounter? (DM, HTN, Smoking, COPD, CAD, Cancer, CVA, ARF, Chemo, Hep., AIDS, mental health diagnosis, sleep apnea, morbid obesity)? @ -[None] Was patient admitted / discharged? Hospital course, mention meds given and route, prescriptions, significant lab abnormalities, going to OR and other pertinent info. @ -[Discharged Undiagnosed new problem with uncertain prognosis? @ -[No] Drug Therapy requiring intensive monitoring for toxicity (Heparin, Nitro, Insulin, Cardizem)? @ -[No] Were any procedures done? @ -[No] Diagnosis/symptom? @ -[Acute costochondritis Acute, or Chronic, or Acute on Chronic? @ -[Acute Uncomplicated (without systemic symptoms) or Complicated (systemic symptoms)? @ -[Uncomplicated Side effects of treatment? @ -[No] Exacerbation, Progression, or Severe Exacerbation? @ -[No] Poses a threat to life or bodily function? How? (Chest pain, [place], SD, pneumonia, PE, COPD, DKA, ARF, appy, cholecystitis, CVA, Diverticulitis, Homicidal, Suicidal, threat to staff... and all critical care pts) @ -[No] Disposition Clinical Impression: Costochondritis Disposition: HOME SELF-CARE Condition: Good Instructions (If sedation given, give patient instructions): Costochondritis (ED) Prescriptions: Ibuprofen [Motrin] 600 mg PO Q8HR PRN #20 tab PRN Reason: Pain Is patient prescribed a controlled substance at d/c from ED?: No Referrals: Melany Lambert MD [Primary Care Provider] - 1-2 days
[2023-03-10 01:38] VITALS: BP 135/91; PULSE 73; TEMP 98.2
== END 2023-03-10 01:31 | disposition home or self-care (01) ==
LOC: EC 20:42
DX: M94.0 Chondrocostal junction syndrome [Tietze] (principal); E11.9 Type 2 diabetes mellitus without complications; I10 Essential (primary) hypertension; J45.909 Unspecified asthma, uncomplicated; F12.90 Cannabis use, unspecified, uncomplicated; Z79.84 Long term (current) use of oral hypoglycemic drugs; Z79.82 Long term (current) use of aspirin; Z79.899 Other long term (current) drug therapy; Z88.0 Allergy status to penicillin
CPT/HCPCS: 36415; 71046; 80053; 84484; 85025; 93005; 99285

== ENCOUNTER → 2023-05-01 | Outpatient (CLI) | payer OTHER ==
--- NOTE | 2023-05-01 15:57 | US ---
EXAMINATION TYPE: US abdomen complete DATE OF EXAM: 05/01/2023 COMPARISON: NONE CLINICAL INDICATION: Female, 42 years old with history of R19.8 OTH SYMPTOMS AND SIGNS INVOLVING THE DGSTV S; Hx of gallstones, epigastric pain since february, pain and fullness with eating ?hiatal herni a? per pt. TECHNIQUE: Multiple sonographic images of the abdomen are obtained. FINDINGS: EXAM MEASUREMENTS: Liver Length: 20.1 cm Gallbladder Wall: 0.2 cm CBD: 0.5 cm Spleen: 10.3 cm Right Kidney: 12.1 x 4.2 x 5.2 cm Left Kidney: 12.1 x 5.2 x 4.9 cm [employer]ORTING GOODS SALESPERSON NOTES: Exam limited by bowel gas, attenuation from the liver, and body habitus Pancreas: mostly obscured by bowel Liver: increased size, echogenicity, and attenuation. No focal lesion seen. Gallbladder: Distended to up to 13cm, At least 7 shadowing echogenic foci measuring up to 1.9 cm not ed Evidence for sonographic Ruano's sign: No CBD: wnl Spleen: wnl Right Kidney: No hydronephrosis or masses seen Left Kidney: No hydronephrosis or masses seen Upper IVC: Not visualized due to liver attenuation and bowel gas Abd Aorta: no AAA seen IMPRESSION: 1. Hepatomegaly at 20.1 cm with at least moderate to severe hepatic steatosis. Appropriate clinical m anagement is advised. 2. Cholelithiasis. The gallbladder is mildly hydropic. This may reflect fasting state. If right upper quadrant pain or concern for early acute cholecystitis, follow-up HIDA scan. 3. No biliary ductal dilatation.
== END | disposition home or self-care (01) ==
LOC: RADUSWWP 07:30
PROVIDERS: ATTEND Family Medicine
DX: K76.0 Fatty (change of) liver, not elsewhere classified (principal); K80.20 Calculus of gallbladder without cholecystitis without obstruction; R16.0 Hepatomegaly, not elsewhere classified; R19.8 Other specified symptoms and signs involving the digestive system and abdomen
CPT/HCPCS: 76700